=== PATIENT | male | born 1945 | race Caucasian/White ===

== ENCOUNTER → 2016-11-23 | Outpatient (CLI) | payer OTHER | LOC: FIMAGING 07:10 | PROVIDERS: ATTEND Internal Medicine | DX: Z13.6 Encounter for screening for cardiovascular disorders (principal); Z87.891 Personal history of nicotine dependence ==

== ENCOUNTER → 2017-01-18 | Outpatient (CLI) | payer OTHER ==
[~2017-01-18] MED LIST: IOPAMIDOL (ISOVUE 370) 100 ML BTL IV ONE
== END ==
LOC: FIMAGING 13:10
PROVIDERS: ATTEND Psychiatry & Neurology Neurology
DX: I67.1 Cerebral aneurysm, nonruptured (principal)
CPT/HCPCS: Q9967

== ENCOUNTER → 2017-01-25 | Outpatient (CLI) | payer OTHER ==
--- NOTE | 2017-01-25 21:08 | CPEEG ---
[f rep st] ELECTROENCEPHALOGRAM DATE OF STUDY: 01/25/2017 DATE OF INTERPRETATION: 01/25/2017. INTERPRETATION: Normal EEG during wakefulness and drowsiness. There was no potentially epileptogen ic abnormalities present in the recording. REPORT: This EEG contains 9 Hz alpha activity over the posterior head regions. There was no abnorm al activation at rest, during photic stimulation, or hyperventilation. The patient intermittently b ecame drowsy during the study. There was no abnormal activation during drowsiness or during times o f arousal. /[id number]/MODL
== END ==
LOC: FCPNEURO 10:52
PROVIDERS: ATTEND Psychiatry & Neurology Neurology
DX: R29.818 Other symptoms and signs involving the nervous system (principal)

== ENCOUNTER → 2017-04-28 | Outpatient (CLI) | payer OTHER, MEDICARE | LOC: FIMAGING 13:39 | PROVIDERS: ATTEND Psychiatry & Neurology Neurology | DX: I77.71 Dissection of carotid artery (principal) | CPT/HCPCS: 70498; Q9967 ==

== ENCOUNTER → 2017-11-01 | Outpatient (CLI) | payer OTHER, MEDICARE | LOC: FIMAGING 07:57 | PROVIDERS: ATTEND Psychiatry & Neurology Neurology | DX: I72.0 Aneurysm of carotid artery (principal) | CPT/HCPCS: 70498; Q9967; 82947-QW ==